=== PATIENT | male | born 1955 | race Two or more races ===

== ENCOUNTER 2024-06-05 08:52 | Day surgery (SDC) | payer OTHER ==
[2024-06-02 12:05] VITALS: BP 120/79
[~2024-06-05] VITALS: Ht 167.6 cm; Wt 82.1 kg
[~2024-06-05 08:52] MED LIST: OMEGA-31000 MG PO
[2024-06-05] MEDS ORDERED: CEFTRIAXONE SODIUM 2,000 MG VIAL ONE (11:12)
[2024-06-05] MEDS ORDERED: METRONIDAZOLE/SODIUM CHLORIDE 500 MG/100 ML PIGGYBACK IV ONE (11:13)
[2024-06-05] MEDS ORDERED: HEMOSTATIC MATRIX 1 KIT KIT TOP ONE (11:15)
[2024-06-05] MEDS ORDERED: DIBUCAINE 30 GM TUBE ONE (11:15)
[2024-06-05] MEDS ORDERED: MORPHINE SULFATE 2 MG/ML CARTRIDGE IV ONE (12:55)
[2024-06-05] MEDS ORDERED: COLACE100 MG PO (13:00)
[2024-06-05] MEDS ORDERED: TRAM1TAB98 PO (13:00)
== END 2024-06-05 15:35 | disposition home or self-care (01) ==
LOC: CIR.AMB 08:52
PROVIDERS: ATTEND Surgery
DX: K60.311 Anal fistula, simple, initial (principal); K62.89 Other specified diseases of anus and rectum